=== PATIENT | female | born 1950 | race Caucasian/White ===

== ENCOUNTER 2018-05-27 08:32 | Emergency (ER) | payer MEDICARE, OTHER ==
[~2018-05-27] VITALS: Ht 162.6 cm; Wt 72.6 kg
[~2018-05-27 08:32] MED LIST: ASPIRIN EC81 MG; B COMPLEX-FOLI1 EACH; CALCARB 600 WI1 EACH; CINNAMON500 MG; FISH OIL 1,2001 EACH; GREEN TEA1 EACH; LISINOPRIL10 MG; METFORMIN HCL500 MG; NORCO 5-325 TA1 EACH PO; SYNTHROID112 MCG; VIT C-BIOFLAVO1 EACH
[2018-05-27] MEDS ORDERED: ATIVAN1 MG PO (10:39)
[2018-05-27] MEDS ORDERED: ONDANSETRON ODT8 MG PO (10:39)
== END 2018-05-27 10:55 | disposition home or self-care (01) ==
LOC: ED 08:32
DX: M25.552 Pain in left hip (principal); F17.200 Nicotine dependence, unspecified, uncomplicated; Z88.0 Allergy status to penicillin; Z88.6 Allergy status to analgesic agent; Z88.8 Allergy status to other drugs, medicaments and biological substances; Z88.1 Allergy status to other antibiotic agents; Z79.84 Long term (current) use of oral hypoglycemic drugs; Z79.82 Long term (current) use of aspirin; Z79.899 Other long term (current) drug therapy
CPT/HCPCS: 80053; 85025; 96361; 96374; 96375; 99284; J2060; J2405; J7030

== ENCOUNTER 2018-05-30 16:54 | Emergency (ER) | payer MEDICARE, OTHER ==
[~2018-05-30] VITALS: Ht 162.6 cm; Wt 71.7 kg
[~2018-05-30 16:54] MED LIST changes: +ATIVAN1 MG PO; +ONDANSETRON ODT8 MG PO
--- OUTSIDE RECORDS SUMMARY | 2018-05-30 19:53 | XMS ---
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 Nic has no Care Guidelines for this patient. Rog[facility] MO[facility] NOTE: Visits indicate total known visits. ED/C VISIT TRACKING (12 MO.) 05/30/2018 16:55 [facility] TYPE: Emergency COMPLAINT: - L HIP PAIN/NO INJURY 05/27/2018 08:33 [facility] [place] TYPE: Emergency COMPLAINT: - VOMITING INPATIENT VISIT TRACKING (12 MO.) No inpatient visits to display in this time frame [email or web address]
[2018-05-30] MEDS ORDERED: NAPROXEN500 MG PO (20:00)
[2018-05-30] MEDS ORDERED: TRAMADOL HCL50 MG PO (20:00)
== END 2018-05-30 20:07 | disposition home or self-care (01) ==
LOC: ED 16:54
DX: M25.552 Pain in left hip (principal); F17.200 Nicotine dependence, unspecified, uncomplicated; Z88.0 Allergy status to penicillin; Z88.6 Allergy status to analgesic agent; Z88.5 Allergy status to narcotic agent; Z88.1 Allergy status to other antibiotic agents; Z79.82 Long term (current) use of aspirin; Z79.899 Other long term (current) drug therapy
CPT/HCPCS: 73502; 99283

== ENCOUNTER → 2018-05-31 | Emergency (ER) | payer MEDICARE, OTHER ==
[~2018-05-31] VITALS: Ht 162.6 cm; Wt 71.7 kg
[~2018-05-31] MED LIST changes: +NAPROXEN500 MG PO; +TRAMADOL HCL50 MG PO
--- OUTSIDE RECORDS SUMMARY | 2018-05-31 21:58 | XMS ---
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 Nic has no Care Guidelines for this patient. Roge VISIT COUNT (12 MO[address] [facility] TOTAL 3 NOTE: Visits indicate total known visits. ED/C VISIT TRACKING (12 MO.) 05/31/2018 14:08 [facility] [place] TYPE: Emergency COMPLAINT: - HIP PAIN 05/30/2018 16:55 [facility] [place] TYPE: Emergency COMPLAINT: - L HIP PAIN/NO INJURY 05/27/2018 08:33 [facility] [place] TYPE: Emergency COMPLAINT: - VOMITING DIAGNOSES: - Allergy status to analgesic agent status - Allergy status to penicillin - Allergy status to other drugs, medicaments and biological substances status - Pain in left hip - Allergy status to other antibiotic agents status - half-way (current) use of aspirin - Nicotine dependence, unspecified, uncomplicated - half-way (current) use of oral hypoglycemic drugs - Other longterm (current) drug therapy INPATIENT VISIT TRACKING (12 MO.) No inpatient visits to display in this time frame [id number]
== END ==
LOC: ED 14:07
DX: M84.459A Pathological fracture, hip, unspecified, initial encounter for fracture (principal); F17.200 Nicotine dependence, unspecified, uncomplicated; Z88.0 Allergy status to penicillin; Z88.1 Allergy status to other antibiotic agents; Z88.5 Allergy status to narcotic agent; Z79.899 Other long term (current) drug therapy; Z79.84 Long term (current) use of oral hypoglycemic drugs; Z79.82 Long term (current) use of aspirin
CPT/HCPCS: 73700; 80053; 85025; 85610; 96374; 99284; J1170

== ENCOUNTER 2019-06-05 11:55 | Emergency (ER) | payer MEDICARE, OTHER ==
[~2019-06-05] VITALS: Ht 162.6 cm; Wt 70.3 kg
[2019-06-05] MEDS ORDERED: LISINOPRIL5 MG PO (12:09)
== END 2019-06-05 13:43 | disposition home or self-care (01) ==
LOC: ED 11:55
DX: M25.512 Pain in left shoulder (principal); E11.9 Type 2 diabetes mellitus without complications; F17.200 Nicotine dependence, unspecified, uncomplicated; Z88.0 Allergy status to penicillin; Z88.1 Allergy status to other antibiotic agents; Z88.5 Allergy status to narcotic agent; Z88.6 Allergy status to analgesic agent; Z91.041 Radiographic dye allergy status; Z79.84 Long term (current) use of oral hypoglycemic drugs; Z79.82 Long term (current) use of aspirin; Z79.899 Other long term (current) drug therapy
CPT/HCPCS: 73030; 99283

== ENCOUNTER 2020-05-03 09:27 | Emergency (ER) | payer MEDICARE, OTHER ==
[~2020-05-03] VITALS: Ht 162.6 cm; Wt 70.3 kg
[~2020-05-03 09:27] MED LIST changes: +LISINOPRIL5 MG PO
== END 2020-05-03 10:02 | disposition home or self-care (01) ==
LOC: ED 09:27
DX: J06.9 Acute upper respiratory infection, unspecified (principal); E11.9 Type 2 diabetes mellitus without complications; F17.200 Nicotine dependence, unspecified, uncomplicated; Z88.0 Allergy status to penicillin; Z88.5 Allergy status to narcotic agent; Z88.8 Allergy status to other drugs, medicaments and biological substances; Z79.899 Other long term (current) drug therapy
CPT/HCPCS: 99283

== ENCOUNTER 2021-09-13 08:47 | Emergency (ER) | payer MEDICARE, OTHER ==
[~2021-09-13] VITALS: Ht 162.6 cm; Wt 66.2 kg
[2021-09-13] MEDS ORDERED: CLARITIN10 MG PO (09:08)
== END 2021-09-13 11:50 | disposition home or self-care (01) ==
LOC: ED 08:47
DX: R07.89 Other chest pain (principal); E11.9 Type 2 diabetes mellitus without complications; F17.200 Nicotine dependence, unspecified, uncomplicated; Z88.0 Allergy status to penicillin; Z88.8 Allergy status to other drugs, medicaments and biological substances; Z88.5 Allergy status to narcotic agent; Z88.1 Allergy status to other antibiotic agents; Z79.899 Other long term (current) drug therapy; Z79.84 Long term (current) use of oral hypoglycemic drugs; Z79.82 Long term (current) use of aspirin
CPT/HCPCS: 71101; 99284-25

== ENCOUNTER 2021-12-11 07:44 | Emergency (ER) | payer MEDICARE, OTHER ==
[~2021-12-11] VITALS: Ht 162.6 cm; Wt 66.2 kg
[~2021-12-11 07:44] MED LIST changes: +CLARITIN10 MG PO
--- OUTSIDE RECORDS SUMMARY | 2021-12-11 07:50 | XMS ---
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 EShae VISIT COUNT (12 MO.) 3 [facility] TOTAL 3 NOTE: Visits indicate total known visits. 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
== END 2021-12-11 08:57 | disposition home or self-care (01) ==
LOC: ED 07:44
DX: M25.531 Pain in right wrist (principal); M86.9 Osteomyelitis, unspecified; E11.9 Type 2 diabetes mellitus without complications; F17.200 Nicotine dependence, unspecified, uncomplicated; Z88.0 Allergy status to penicillin; Z88.5 Allergy status to narcotic agent; Z88.8 Allergy status to other drugs, medicaments and biological substances; Z79.899 Other long term (current) drug therapy; Z79.82 Long term (current) use of aspirin; Z79.84 Long term (current) use of oral hypoglycemic drugs
CPT/HCPCS: 73110; 99283-25; A9270

== ENCOUNTER 2022-01-21 07:32 | Emergency (ER) | payer MEDICARE, OTHER ==
[~2022-01-21] VITALS: Ht 162.6 cm; Wt 65.6 kg
[2022-01-21] MEDS ORDERED: ULTRAM50 MG PO (08:49)
== END 2022-01-21 09:03 | disposition home or self-care (01) ==
LOC: ED 07:32
DX: S42.331A Displaced oblique fracture of shaft of humerus, right arm, initial encounter for closed fracture (principal); M86.9 Osteomyelitis, unspecified; F17.200 Nicotine dependence, unspecified, uncomplicated; Z88.0 Allergy status to penicillin; Z88.8 Allergy status to other drugs, medicaments and biological substances; Z88.1 Allergy status to other antibiotic agents; Z88.5 Allergy status to narcotic agent; Z88.6 Allergy status to analgesic agent; Z79.899 Other long term (current) drug therapy; Z79.84 Long term (current) use of oral hypoglycemic drugs; Z79.82 Long term (current) use of aspirin; W19.XXXA Unspecified fall, initial encounter; W22.8XXA Striking against or struck by other objects, initial encounter
CPT/HCPCS: 73060; 99283-25

== ENCOUNTER 2022-01-24 19:08 | Emergency (ER) | payer MEDICARE, OTHER ==
[~2022-01-24] VITALS: Ht 162.6 cm; Wt 65.3 kg
[~2022-01-24 19:08] MED LIST changes: +ULTRAM50 MG PO
--- OUTSIDE RECORDS SUMMARY | 2022-01-24 19:10 | XMS ---
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 12/10/2021 12:26 Details: PATIENT LWBS CRITERIA MET - [facility] - 2 Visits in 30 Days CARE PROVIDERS MARTITA ANTOINE 06/01/2018-Current PHONE: Unknown Nic has no Care Guidelines for this patient. Roge VISIT COUNT (12 MO.) 5 [facility]. TOTAL 5 NOTE: Visits indicate total known visits. ED/UCC VISIT TRACKING (12 MO.) 01/24/2022 19:08 [facility] TYPE: Emergency COMPLAINT: - R ARM PAIN 01/21/2022 07:32 [facility] TYPE: Emergency COMPLAINT: - POSS R ARM BROKE INJURY 12/11/2021 07:44 [facility] TYPE: Emergency COMPLAINT: - R WRIST PAIN DIAGNOSES: - Allergy status to narcotic agent - [facility] (current) use of aspirin - Allergy status to penicillin - Type 2 diabetes mellitus without complications - Allergy status to other drugs, medicaments and biological substances - [facility] (current) use of oral hypoglycemic drugs - Osteomyelitis, unspecified - Nicotine dependence, unspecified, uncomplicated - Pain in right wrist - Other snf (current) drug therapy 12/10/2021 12:26 [facility] TYPE: Emergency COMPLAINT: - R WRIST PAIN 09/13/2021 08:48 [facility] TYPE: Emergency COMPLAINT: - R SIDE PAIM DIAGNOSES: - 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 - Allergy status to other antibiotic agents - Allergy status to penicillin - Allergy status to narcotic agent - Type 2 diabetes mellitus without complications - Pleurodynia - Nicotine dependence, unspecified, uncomplicated - Allergy status to other drugs, medicaments and biological substances - 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
== END 2022-01-24 21:50 | disposition home or self-care (01) ==
LOC: ED 19:08
DX: S42.301A Unspecified fracture of shaft of humerus, right arm, initial encounter for closed fracture (principal); M86.9 Osteomyelitis, unspecified; E11.9 Type 2 diabetes mellitus without complications; Z88.0 Allergy status to penicillin; Z88.8 Allergy status to other drugs, medicaments and biological substances; Z88.5 Allergy status to narcotic agent; Z88.6 Allergy status to analgesic agent; Z79.899 Other long term (current) drug therapy; Z79.82 Long term (current) use of aspirin; Z79.84 Long term (current) use of oral hypoglycemic drugs; X58.XXXA Exposure to other specified factors, initial encounter
CPT/HCPCS: 99283

== ENCOUNTER 2024-06-14 17:57 | Emergency (ER) | payer MEDICARE, OTHER ==
[~2024-06-14] VITALS: Ht 162.6 cm; Wt 66.4 kg
[2024-06-14] MEDS ORDERED: GABAPENTIN100 MG PO (21:06)
[2024-06-14] MEDS ORDERED: CYCLOBENZAPRINE HCL 10 MG HOME.PACK PO ONE (22:45)
[2024-06-14] MEDS ORDERED: methylPREDNISolone 4 MG HOME.PACK PO ONE (22:45)
[2024-06-14] MEDS ORDERED: OXYCODONE/ACETAMINOPHEN 1 TAB HOME.PACK PO ONE (22:45)
[2024-06-14] MEDS ORDERED: CYCLOBENZAPRINE10 MG PO (22:47)
[2024-06-14 23:00] VITALS: BP 177/89
== END 2024-06-14 23:00 | disposition home or self-care (01) ==
LOC: ED 17:57
DX: M54.41 Lumbago with sciatica, right side (principal); E11.9 Type 2 diabetes mellitus without complications; I10 Essential (primary) hypertension; E89.0 Postprocedural hypothyroidism; F17.200 Nicotine dependence, unspecified, uncomplicated; Z88.0 Allergy status to penicillin; Z88.1 Allergy status to other antibiotic agents; Z88.5 Allergy status to narcotic agent; Z88.6 Allergy status to analgesic agent; Z91.041 Radiographic dye allergy status; Z79.84 Long term (current) use of oral hypoglycemic drugs; Z79.890 Hormone replacement therapy; Z79.82 Long term (current) use of aspirin; Z79.899 Other long term (current) drug therapy
CPT/HCPCS: 73502; 99283

== ENCOUNTER 2025-02-23 13:12 | Emergency (ER) | payer MEDICARE, OTHER ==
[~2025-02-23] VITALS: Ht 162.6 cm; Wt 66.0 kg
[~2025-02-23 13:12] MED LIST changes: +CYCLOBENZAPRINE10 MG PO; +GABAPENTIN100 MG PO
[2025-02-23] MEDS ORDERED: HYDROCODONE/APAP 10/325 1 TAB PO ONE (15:00)
[2025-02-23] MEDS ORDERED: ACETAMINOPHEN 500 MG TAB PO ONE (16:15)
[2025-02-23 16:57] VITALS: BP 169/78
== END 2025-02-23 16:41 | disposition home or self-care (01) ==
LOC: ED 13:12
DX: S83.92XA Sprain of unspecified site of left knee, initial encounter (principal); I10 Essential (primary) hypertension; E11.9 Type 2 diabetes mellitus without complications; X58.XXXA Exposure to other specified factors, initial encounter; F17.200 Nicotine dependence, unspecified, uncomplicated; Z79.82 Long term (current) use of aspirin; Z79.899 Other long term (current) drug therapy; Z88.0 Allergy status to penicillin; Z91.040 Latex allergy status; Z88.6 Allergy status to analgesic agent; Z88.5 Allergy status to narcotic agent
CPT/HCPCS: 73560; 99283; A9270

== ENCOUNTER 2025-04-14 12:08 | Emergency (ER) | payer MEDICARE, OTHER ==
[~2025-04-14] VITALS: Ht 162.6 cm; Wt 66.0 kg
[2025-04-14] MEDS ORDERED: SYNTHROID88 MCG PO (12:49)
[2025-04-14 13:34] VITALS: BP 133/74
== END 2025-04-14 13:35 | disposition home or self-care (01) ==
LOC: ED 12:08
DX: S56.417A Strain of extensor muscle, fascia and tendon of right little finger at forearm level, initial encounter (principal); I10 Essential (primary) hypertension; F17.200 Nicotine dependence, unspecified, uncomplicated; W23.0XXA Caught, crushed, jammed, or pinched between moving objects, initial encounter; Z79.82 Long term (current) use of aspirin; Z79.899 Other long term (current) drug therapy; Z88.0 Allergy status to penicillin; Z91.041 Radiographic dye allergy status; Z88.5 Allergy status to narcotic agent; Z88.6 Allergy status to analgesic agent
CPT/HCPCS: 73140; 99283

== ENCOUNTER 2025-07-08 09:58 | Emergency (ER) | payer MEDICARE, OTHER ==
[~2025-07-08] VITALS: Ht 162.6 cm; Wt 67.0 kg
[~2025-07-08 09:58] MED LIST changes: +SYNTHROID88 MCG PO
[2025-07-08] MEDS ORDERED: METFORMIN HCL1000 MG PO (10:18)
[2025-07-08] MEDS ORDERED: ACETAMINOPHEN 500 MG TAB PO ONE (10:45)
[2025-07-08 12:30] VITALS: BP 142/75
== END 2025-07-08 12:30 | disposition home or self-care (01) ==
LOC: ED 09:58
DX: M25.552 Pain in left hip (principal); M79.605 Pain in left leg; Z88.0 Allergy status to penicillin; Z91.041 Radiographic dye allergy status; Z88.8 Allergy status to other drugs, medicaments and biological substances; Z88.5 Allergy status to narcotic agent; Z79.899 Other long term (current) drug therapy; F17.200 Nicotine dependence, unspecified, uncomplicated; I10 Essential (primary) hypertension
CPT/HCPCS: 73502; 73552; 99283; A9270